=== PATIENT | male | born 1935 | race Caucasian/White ===

== ENCOUNTER 2021-01-26 17:33 | Observation (INO) | payer MEDICARE, SELFPAY ==
--- NOTE | 2021-01-26 17:27 | ECG_ITS ---
APPROVED REPORT Exam: Resting ECG HR:72 bpm ECG Measurements Heart Rate 72 AXES NV 146 P 55 QRSd 80 QRS 14 QT 402 T 66 QTc 440 Conclusion Normal sinus rhythm Normal ECG Electronically signed by : Flaco Duff, 01/27/2021 07:11:24
[2021-01-26 17:33] VITALS: BP 155/88; PULSE 84; RESP 20; TEMP 36.9; O2SAT 99; BMI 25.7
--- NOTE | 2021-01-26 17:49 | XR_ITS ---
PROCEDURE: XR CHEST PORTABLE CLINICAL HISTORY: soa Shortness of air, history of smoking COMPARISON: No exams were available for comparison FINDINGS: The cardiomediastinal silhouette and pulmonary vascularity are within normal limits. Chronic interstitial changes are present. Hyper lucency is present in the right upper lobe possibly due to bullous changes. No lobar consolidation or collapse. No acute bony abnormalities. IMPRESSION: COPD with possible bullous change right upper lobe Dictated by: Josh Fraire MD 01/27/2021 07:43 Josh Fraire MD in [place] 01/27/2021 07:43
--- NOTE | 2021-01-26 17:49 | CT_ITS ---
PROCEDURE: CT HEAD/BRAIN WO CON CLINICAL INDICATION: altered mental status Altered mental status, altered level of consciousness, confusion, disorientation COMPARISON: No exams were available for comparison TECHNIQUE: Axial images obtained. All CT scans at the facility use one or more dose reduction, viz: automated exposure control, ma/kV adjustment per patient size (including targeted exams where dose is matched to indication, i.e. head), or iterative reconstruction technique. FINDINGS: No midline shift, mass effect, intracranial hemorrhage, hydrocephalus, or extra-axial fluid collection is evident. The calvarium has an unremarkable appearance. The There is generalized atrophy with hypoattenuation of the periventricular white matter consistent with microangiopathic changes.. Encephalomalacia changes are present in the left frontal lobe. 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 There are bilateral mastoid effusions. There is mild mucosal thickening of the ethmoid sinuses. There is a defect present within the left frontal bone and could be postsurgical or true posttraumatic. IMPRESSION: No acute finding. Ischemic gliotic changes. Encephalomalacia change in the left frontal lobe adjacent to a small defect within the calvarium Dictated by: Josh Fraire MD 01/27/2021 09:05 Josh Fraire MD in [facility] 01/27/2021 09:05
[2021-01-26 17:54] LABS: Basophils # 0.1 K/mm3 (0-0.2); Basophils % 0.8 % (0.1-2.0); Eosinophils # 0.6 K/mm3 (0.0-0.4); Eosinophils % 6.8 % (0.1-12.0); Hematocrit 44.7 % (42.0-52.0); Hemoglobin 14.2 g/dL (14.1-18.0); Lymphocytes # 1.1 K/mm3 (0.7-4.5); Lymphocytes % 12.5 % (10-50); Mean Corpuscular HGB Conc 31.8 g/dL (31.8-35.4); Mean Corpuscular Volume 88.1 fl (80-94); Mean Platelet Volume 8.2 fl (7.4-10.4); Monocytes # 0.7 K/mm3 (0.1-1.0); Monocytes % 7.7 % (1.7-9.3); Neutrophils # 6.5 K/mm3 (1.8-7.8); Neutrophils % 72.1 % (37.0-80.0); Platelet Count 239 K/mm3 (142-424); Red Blood Count 5.08 M/mm3 (4.60-6.20); Red Cell Distribution Width 14.5 % (11.5-17.5)
[2021-01-26 18:06] VITALS: BMI 36.5
[2021-01-26 18:13] LABS: Anion Gap 12.4 mEq/L (5-15); Blood Urea Nitrogen 13 mg/dl (9-20); Calcium 10.7 mg/dl (8.4-10.2); Carbon Dioxide 31 mmol/L (22.0-30.0); Chloride 99 mmol/L (98-107); Creatinine Clearance Estimated 85 mL/min (50-200); Estimated Glomerular Filt Rate 80 ml/min (>60); GFR (African American) 97 ML/MIN (>60); Glucose 123 mg/dl (74-100); Potassium 4.4 mmoL/L (3.5-5.1); Sodium 138 mmol/L (136-145)
--- NOTE | 2021-01-26 18:16 | PC.NURSE ---
Respiratory aware of VBG
--- NOTE | 2021-01-26 18:16 | PC.NURSE ---
Pt to radiology
--- NOTE | 2021-01-26 18:17 | HMH.EDGENADL ---
ED Disposition Clinical Impression: Dementia, Impaired activities of daily living Disposition: Admitted as Observation Condition on Discharge: Good Referrals: PCP,No [Primary Care Provider] - - Critical Care Critical Care Time: No Attestation: On 01/26/21, the high probability of a clinically significant, sudden or life threatening deterioration of the following system(s) required my full and direct attention, intervention and personal management. The time I documented below is in addition to time spent performing reported procedures but includes the following listed in this critical care notation. Medical Decision Making - Medical Records Medical records reviewed: Yes: I reviewed the patient's medical records. - Elias Inquiry Pt receiving controlled substance: No Vital Signs: 01/26/21 17:33 01/26/21 19:01 Temperature 98.4 F Temperature Source Oral Pulse Rate 76 Pulse Rate [Left Radial] 84 Respiratory Rate 20 17 Blood Pressure 181/107 H Blood Pressure [Right Arm] 155/88 H Blood Pressure Mean [Right Arm] 110 Blood Pressure Source [Right Arm] Automatic Cuff Blood Pressure Position [Right Arm] Sitting 02 Sat by Pulse Oximetry 99 96 Oxygen Delivery Method Room Air - Lab Data Lab Results 01/26/21 17:45: WBC 9.0, RBC 5.08, Hgb 14.2, Hct 44.7, MCV 88.1, MCH 28.0, MCHC 31.8, RDW 14.5, Plt Count 239, MPV 8.2, Neut % (Auto) 72.1, Lymph % (Auto) 12.5, [place] % (Auto) 7.7, Eos % (Auto) 6.8, Baso % (Auto) 0.8, Neut # (Auto) 6.5, Lymph # (Auto) 1.1, [place] # (Auto) 0.7, Eos # (Auto) 0.6 H, Baso # (Auto) 0.1 01/26/21 17:45: Sodium 138, Potassium 4.4, Chloride 99, Carbon Dioxide 31 H, Anion Gap 12.4, BUN 13, Creatinine 0.90, Estimated Creat Clear 85, Estimated GFR 80, Est GFR ( Amer) 97, Glucose 123 H, Calcium 10.7 H, Magnesium 2.0 01/26/21 17:49: VBG pH 7.35, VBG pCO2 53.8 H, VBG pO2 37.6, VBG HCO3 29.2, VBG Total CO2 30.9 H, VBG O2 Saturation 69.2, VBG Base Excess 3.7 H 01/26/21 19:00: Urine Color Yellow, Urine Appearance Clear, Urine pH 5.5, Ur Specific [place] >= 1.030, Urine Protein Negative, Urine Glucose (UA) Negative, Urine Ketones Negative, Urine Blood Negative, Urine Nitrate Negative, Urine Bilirubin Negative, Urine Urobilinogen 0.2, Ur Leukocyte Esterase Negative, Urine WBC 3-5, Ur Squamous Epith Cells 5-10, Amorphous Sediment Trace, Urine Mucus 4+ Result diagrams: 01/26/21 17:45 01/26/21 17:45 Orders (Tests/Meds): ORDERS Category Date Time Status CT head/brain wo con Stat Cat Scan 01/26/21 17:49 Taken XR chest portable Stat Exams 01/26/21 17:49 Taken Full Resp Panel w/COVID ([facility]) Routine Lab 01/26/21 19:29 Received Medical Decision Narrative: 85-year-old male presents with dementia and worsening function, normal neurological exam. Appears to be worsening deconditioning at home. CT head and labs obtained urinalysis and chest x-ray obtained as well. Full evaluation for medical work-up initiated. CT head urinalysis and labs otherwise unremarkable. Based on the story the patient is having worsening deconditioning, difficulty with activities of daily living and the family is unable to take care of him at this time at the house. I discussed this with Dr. Quinn and plan will be to admit and have social work and Dr. Quinn discussed in the morning with different options for the patient General Adult HPI - General Chief complaint: Weakness Stated complaint: weakness Time Seen by Provider: 01/26/21 17:40 Mode of Arrival: EMS Limitations: Altered Mental Status Description of Symptoms (Recalled from ER Triage Doc. by RN): son states that pt has become more weaker the last few days to where they cant get him up to the bathroom or lift him. - History of Present Illness HPI narrative: With history of dementia presents with worsening deconditioning at home. He lives with his who is frail and having difficulty taking care of him. He has had frequent falls recently. His son says
[2021-01-26 18:29] LABS: VBG Base Excess 3.7 mmol/L (-2.4-2.3); VBG HCO3 29.2 mmol/L (23-30); VBG Oxygen Saturation 69.2 % (50-70); VBG PCO2 53.8 mmol/L (35-51); VBG PH 7.35 mmol/L (7.31-7.41); VBG PO2 37.6 mmol/L (28-40); VBG Total CO2 30.9 mmol/L (23-27)
[2021-01-26 19:01] VITALS: BP 181/107; PULSE 76; RESP 17; O2SAT 96
[2021-01-26 19:07] LABS: Microscopic, Urine URINE MICROSCOPIC (MICROSCOPIC)
[2021-01-26 19:08] LABS: Appearance,Urine CLEAR (Clear); Bilirubin,Urine Negative (Negative); Blood, Urine Negative (Negative); Color,Urine YELLOW (Yellow); Glucose,Urine (UA) Negative (Negative); Ketones,Urine Negative (Negative); Leukocyte Esterase,Urine Negative (Negative); Nitrate,Urine Negative (Negative); PH,Urine 5.5 (5.0-8.5); Protein,Urine Negative (Negative); Specific Gravity, Urine >= 1.030 (1.005-1.030); Urobilinogen,Urine 0.2 EU/dl (0.2)
[2021-01-26 19:19] LABS: Amorphous Sediment,Urine Trace /lpf; Mucus,Urine 4+ /lpf
[2021-01-26 19:33] LABS: Adenovirus,PCR Not Detected (NotDetected); Bordetella Pertussis Not Detected (NotDetected); Chlamydophila Pneumoniae, PCR Not Detected (NotDetected); Coronavirus 19, PCR Not Detected (NotDetected); Coronavirus 229E Not Detected (NotDetected); Coronavirus NL63 Not Detected (NotDetected); Coronavirus OC43 Not Detected (NotDetected); Coronovirus HKU1,PCR Not Detected (NotDetected); Human Metapneumovirus Not Detected (NotDetected); Influenza A, PCR Not Detected (NotDetected); Influenza AH1, 2009 Not Detected (NotDetected); Influenza AH1, PCR Not Detected (NotDetected); Influenza AH3,PCR Not Detected (NotDetected); Influenza B, PCR Not Detected (NotDetected); Mycoplasma Pneumoniae, PCR Not Detected (NotDetected); Parainfluenza 1, PCR Not Detected (NotDetected); Parainfluenza 2, PCR Not Detected (NotDetected); Parainfluenza 3, PCR Not Detected (NotDetected); Parainfluenza 4, PCR Not Detected (NotDetected); Respiratory Syncytial Virus Not Detected (NotDetected); Rhinovirus/Enterovirus Not Detected (NotDetected)
[2021-01-26 22:28] VITALS: BP 186/100; PULSE 70; RESP 18; TEMP 36.6; O2SAT 96; BMI 28.9
--- NOTE | 2021-01-26 22:28 | PC.NURSE ---
patient up to floor via stretcher.
[2021-01-26 22:50] VITALS: BP 154/76; PULSE 76; RESP 18; TEMP 36.9; O2SAT 96
[2021-01-27] VITALS: BP 143/90; O2SAT 93
[2021-01-27 04:00] VITALS: BP 154/91; PULSE 76; RESP 16; TEMP 36.9; O2SAT 96
--- NOTE | 2021-01-27 04:59 | PC.NURSE ---
pt is able to answer orientation questions, but cannot tell me medications or much about his medical history, has been pleasant and talkative, has had intermittent confusion, arrived to floor with 2L NC, but was taken off and has remained on room air with sats 93-96% since 2299, has no complaints of SOA, chest pain, N/V/D, bed alarm on for safety
[2021-01-27 05:00] VITALS: BMI 28.9
[2021-01-27 08:00] VITALS: BP 155/93; PULSE 87; RESP 18; TEMP 36.7; O2SAT 95
--- NOTE | 2021-01-27 08:49 | HMH.HP ---
*Admission Date: 01/26/21 *Chief complaint: Frequent falls, weakness *History of present illness: 85-year-old white male with history of type 2 diabetes, senile dementia and osteoarthritis who has had progressive functional decline which is accelerated over the past couple of weeks. He and his live in [facility], but his who is afflicted with her own medical problems has become unable to care for him without safety issues and frequent falls over the past couple weeks and brought him up to their son's house who lives in [place], [place]. He and his have also been impressed with his degree of functional decline and inability to transition from bed to chair, etc. over the past weeks, and called his physician, Dr. Beckman, who cares for him in [place], who recommended coming to the local emergency department to see if there were reversible/metabolic causes of his worsening encephalopathy/fall/weakness. They presented to the emergency department, work-up revealed normal BMP and CBC, normal urinalysis, negative coronavirus testing and negative CT scan of head for acute changes. He was admitted to observation for further diagnostic testing, therapy evaluation and placement evaluation. [facility] History I have reviewed the patient's past medical history: Yes Medical History: Reports:: Diabetes Mellitus Type 2, Hypertension Denies:: Cancer, Diabetes Mellitus Type 1, MRSA *Have you ever received a pneumonia vaccine?: No *Have you received a flu vaccine this season?: No Other Surgeries: Yes: Appendectomy, Sinus Surgery Amputation: No Fractures: Yes (right arm) - *Social History Last grade of school completed: 9th or 10th Smoking Status: Former smoker Alcohol Intake: never *Occupational Status:: retired Housing: house Household Members: spouse, children *Travel in the last 8 weeks: None Family Hx:: Unable to obtain Review of Systems - Review of Systems Review of systems:: unable to obtain Patient is pleasant, has significant dementia. Denies cardiac, pulmonary or GI symptoms. - *Neurologic Denies abnormal walking, Denies unsteadiness, Denies dizziness, Denies headache(s) Meds Home Medications Medication Instructions Recorded Confirmed Type Aspirin 81 mg PO DAILY 01/26/21 01/26/21 History Cetirizine HCl [Zyrtec 10mg ODT*] 10 mg PO DAILY 01/26/21 01/26/21 History Donepezil HCl [Donepezil ODT 10mg] 10 mg PO DAILY 01/26/21 01/26/21 History Losartan Potassium [Cozaar 25mg 25 mg PO DAILY 01/26/21 01/26/21 History Tablets] Metformin HCl [Fortamet] 500 mg PO BID 01/26/21 01/26/21 History Tramadol HCl [Tramadol 50mg 50 mg PO DAILY 01/26/21 01/26/21 History Tab] Allergies Allergy/AdvReac Type Severity Reaction Status Date / Time No Known Allergies Allergy Verified 01/26/21 18:16 Exam Vital signs and Labs for Last 24 Hours: Temp Pulse Resp BP Pulse Ox 98.0 F 87 18 155/93 H 95 01/27/21 08:00 01/27/21 08:00 01/27/21 08:00 01/27/21 08:00 01/27/21 08:00 Laboratory Results - last 24 hr 01/26/21 17:45: WBC 9.0, RBC 5.08, Hgb 14.2, Hct 44.7, MCV 88.1, MCH 28.0, MCHC 31.8, RDW 14.5, Plt Count 239, MPV 8.2, Neut % (Auto) 72.1, Lymph % (Auto) 12.5, [place] % (Auto) 7.7, Eos % (Auto) 6.8, Baso % (Auto) 0.8, Neut # (Auto) 6.5, Lymph # (Auto) 1.1, [place] # (Auto) 0.7, Eos # (Auto) 0.6 H, Baso # (Auto) 0.1 01/26/21 17:45: Sodium 138, Potassium 4.4, Chloride 99, Carbon Dioxide 31 H, Anion Gap 12.4, BUN 13, Creatinine 0.90, Estimated Creat Clear 85, Estimated GFR 80, Est GFR ( Amer) 97, Glucose 123 H, Calcium 10.7 H, Magnesium 2.0 01/26/21 17:49: VBG pH 7.35, VBG pCO2 53.8 H, VBG pO2 37.6, VBG HCO3 29.2, VBG Total CO2 30.9 H, VBG O2 Saturation 69.2, VBG Base Excess 3.7 H 01/26/21 19:00: Urine Color Yellow, Urine Appearance Clear, Urine pH 5.5, Ur Specific [place] >= 1.030, Urine Protein Negative, Urine Glucose (UA) Negative, Urine Ketones Negative, Urine Blood Negative, Urine Nitrate Negative, Ur
--- NOTE | 2021-01-27 09:43 | HMH.PHAVTE ---
[facility] Pharmacy VTE Monitoring - Patient Demographics Admission date: 01/26/21 Report Date: 01/27/21 Time: 09:43 Allergies/Adverse Reactions: Patient Allergies No Known Allergies Allergy (Verified 01/26/21 18:16) Height: 1.73 m Weight: 86.5 kg Patient Problems: Current Active Problems Dementia (Acute) Impaired activities of daily living (Acute) Frequent falls (Acute) Diabetes mellitus type 2, noninsulin dependent (Acute) - VTE Risk Labs: VTE Related Lab Results Hgb 14.2 g/dL (14.1-18.0) 01/26/21 17:45 Hct 44.7 % (42.0-52.0) 01/26/21 17:45 Plt Count 239 K/mm3 (142-424) 01/26/21 17:45 BUN 13 mg/dl (9-20) 01/26/21 17:45 Creatinine 0.90 mg/dl (0.66-1.25) 01/26/21 17:45 Estimated Creat Clear 85 mL/min (50-200) 01/26/21 17:45 VTE Score: 6 VTE Risk Level: Moderate Risk - Prophylaxis VTE Prophylaxis Ordered?: Yes Types of VTE Prophylaxis: TEDS Knee High Location of Applied Device: Bilateral Lower Extremeties
[2021-01-27 10:12] LABS: Thyroid Stimulating Hormone 3.86 uIU/mL (0.465-4.68)
[2021-01-27 10:32] LABS: Vitamin B12 > 1000 pg/mL (239-931)
--- NOTE | 2021-01-27 11:49 | HMH.PTEV ---
Physical Therapy Evaluation Rehab PT IP Evaluation Start: 01/27/21 08:42 Freq: ONCE Status: Active Protocol: Document 01/27/21 11:42 JULI (Rec: 01/27/21 11:48 JULI [id number]) Subjective/History History History PT ADMITTED TO [facility] 82 YO MALE (PT AND PT'S SON BOTH CONFIRMED 1937 YEAR) W/ DEMENTIA AND FAILURE TO THRIVE Subjective Subjective PT REPORTS 'VERY LITTLE' R SH PAIN THIS AM Rehab PT IP Eval Objective Appearance Patient Behavior Appropriate,Cooperative Patient Orientation Person,Place,Name,Birthday, Situation Difficulty following instructions mild Speech Pattern Clear,Rambling,Spontaneous Speech Ambulation Patient Able to Ambulate Yes Ambulation Observation IP General Gait Pattern Observation Narrow Based Gait Ambulation Distance (feet) 4 Ambulation Assistive Device Rolling Walker Ambulation Ability Moderate x 2 (50% assist) Balance Ability to Arise Able, uses arms to help Sitting Balance Leans or slides in chair Standing Balance Unsteady Dynamic Sitting Balance Ability Poor Dynamic Standing Balance Ability Poor Transfers Bed Transfer Ability Moderate x 1 (50% assist) Sit to Stand Bed Transfer Ability Moderate x 2 (50% assist) Pain Right Shoulder Pain Intensity 1 ROM All Extremities PT ROM Status WFL MMT All Extremities PT MMT WFL Rehab PT IP prob,goals,plan Problems Date of Evaluation: 01/27/21 PT IP Problems Bed Mobility,Transfers,Gait, Balance,Self care,Safety Rehab Potential Rehab Potential Good Equipment Needs Assistive Devices Rolling / Wheeled Walker Plan PT Intervention Plan Bed Mobility,Transfers,Gait, Balance,Self care,Safety PT Plan Frequency BID Duration LOS Discharge Goals Bed Transfer Ability Minimal x 1 (25% assist) Sit to Stand Chair Transfer Ability Moderate x 1 (50% assist) Ambulation Assistive Device Rolling Walker Ambulation Distance (feet) 10 Discharge Plan PT Discharge Plan PT TO D/C TO REHAB OR LTC FACILITY TO CONTINUE TO REGAIN STRENGTH FOR ADL'S G -code Required No Eval Complexity Eval Charge Codes 00973 - Low Complexity PHYSICIAN CERTIFICATION: I certify the specified therapy services for Ramiro Prince
[2021-01-27 16:00] VITALS: BP 154/95; PULSE 83; RESP 18; TEMP 37; O2SAT 94
--- NOTE | 2021-01-27 17:59 | PC.NURSE ---
no acute changes noted. pt received a bath this shift. pt had a bm this shift. he has been turned q2hr. vss. safety in place. mary alice cont. to monitor.
[2021-01-27 19:57] VITALS: BP 157/86; PULSE 83; RESP 19; TEMP 36.9; O2SAT 93
[2021-01-28 03:49] VITALS: BP 134/90; PULSE 76; RESP 17; TEMP 36.8; O2SAT 91
--- NOTE | 2021-01-28 04:02 | PC.NURSE ---
no acute changes this shift, only oriented to person and birthday, has removed 2 IVs this shift, remains on room air, no complaints this shift, bed safety on
[2021-01-28 04:58] VITALS: BMI 29.1
[2021-01-28 08:00] VITALS: BP 190/98; PULSE 84; RESP 18; TEMP 36.9; O2SAT 95
--- NOTE | 2021-01-28 08:28 | HMH.ACPN2 ---
Internal Medicine - PN: Subj *Date: 01/28/21 *Time: 08:28 Interval history: Patient has done well overnight. This morning is not very talkative. Nursing staff reports he is not been talkative this morning but did eat some of his breakfast. He will shake his head yes or no in response to questions but is certainly not as verbal as yesterday. Exam Vital signs and Labs for Last 24 Hours: Temp Pulse Resp BP Pulse Ox 98.4 F 84 18 190/98 H 95 01/28/21 08:00 01/28/21 08:00 01/28/21 08:00 01/28/21 08:00 01/28/21 08:00 Laboratory Results - last 24 hr 01/26/21 17:45: Vitamin B12 > 1000 H, TSH 3.86 I & O for Last 24 hours: Intake & Output 01/25/21 01/26/21 01/27/21 01/28/21 11:59 11:59 11:59 11:59 Intake Total 962 / 962 480 / 480 Output Total 420 / 420 Balance 962 / 962 60 / 60 Weight 190 lb 11.198 oz 192 lb 3 oz Narrative: No cranial nerve asymmetry. Spontaneously moving all extremities. ENT exam otherwise clear. Heart rate regular. Lungs are clear in the anterior gentile, abdomen soft. No edema or clubbing. Assessment and Plan (1) Frequent falls Status: Acute Category: Medical Code(s): R29.6 - Repeated falls (2) Diabetes mellitus type 2, noninsulin dependent Status: Acute Category: Medical Code(s): E11.9 - Type 2 diabetes mellitus without complications (3) Dementia Status: Acute Category: Medical Code(s): F03.90 - Unspecified dementia without behavioral disturbance (4) Impaired activities of daily living Status: Acute Category: Medical Code(s): Z78.9 - Other specified health status - Assessment and plan all Dx Assessment and Plan for all problems:: Restart home medications given his elevated blood pressure yesterday. I believe his nonverbal status is more his dementia and possible anxiety being in the hospital away from his . Continue to observe. Care management involved in finding long-term care facility.
[2021-01-28 11:38] VITALS: BMI 29.1
[2021-01-28 15:43] VITALS: BP 150/88; PULSE 83; RESP 18; TEMP 36.5; O2SAT 90
--- NOTE | 2021-01-28 18:46 | PC.NURSE ---
Pt has been aert to sef only this shift. D/t pt being a hard stick and continuing to pull out PIV, per MD Duff- no PIV needed at this time. Pt has had a poor appetite this shift. Pt has been incontinent of bowel and urine this shift. No other acute changes or complaints at this time.
[2021-01-28 19:45] VITALS: O2SAT 91
[2021-01-28 20:00] VITALS: BP 126/85; PULSE 90; RESP 16; TEMP 37; O2SAT 91
[2021-01-29 03:33] VITALS: BP 148/85; PULSE 72; RESP 18; TEMP 36.8; O2SAT 93
[2021-01-29 05:05] VITALS: BMI 28.5
--- NOTE | 2021-01-29 05:28 | PC.NURSE ---
no acute changes since prior assessment, pt has rested well t/o shift, is oriented to self, lungs CTA, remains on room air, bed safety on
[2021-01-29 08:00] VITALS: BP 147/93; PULSE 65; RESP 16; TEMP 36.8; O2SAT 94
--- NOTE | 2021-01-29 08:38 | P.PN_ITS ---
Internal Medicine - PN: Subj *Date: 01/29/21 *Time: 08:38 Interval history: Did well overnight, eating well, talkative this morning. Exam Vital signs and Labs for Last 24 Hours: Temp Pulse Resp BP Pulse Ox 98.3 F 65 16 147/93 H 94 L 01/29/21 08:00 01/29/21 08:00 01/29/21 08:00 01/29/21 08:00 01/29/21 08:00 I & O for Last 24 hours: Intake & Output 01/26/21 01/27/21 01/28/21 01/29/21 11:59 11:59 11:59 11:59 Intake Total 962 / 962 480 / 480 480 / 480 Output Total 420 / 420 Balance 962 / 962 60 / 60 480 / 480 Weight 190 lb 11.198 oz 192 lb 3.007 oz 188 lb 9 oz Narrative: Alert, demented. Pleasant. Lungs clear, heart rate regular, abdomen soft, extremities weak but no focal deficits. See PT notes. ENT exam clear except for old eye findings Assessment and Plan (1) Frequent falls Status: Acute Category: Medical Code(s): R29.6 - Repeated falls (2) Diabetes mellitus type 2, noninsulin dependent Status: Acute Category: Medical Code(s): E11.9 - Type 2 diabetes mellitus without complications (3) Dementia Status: Acute Category: Medical Code(s): F03.90 - Unspecified dementia without behavioral disturbance (4) Impaired activities of daily living Status: Acute Category: Medical Code(s): Z78.9 - Other specified health status - Assessment and plan all Dx Assessment and Plan for all problems:: No changes in plan. Continue physical therapy. We will begin process of long- term care evaluation.
--- NOTE | 2021-01-29 09:52 | HMH.OTEV ---
OT Inpatient Evaluation Rehab OT IP Evaluation Start: 01/27/21 08:42 Freq: ONCE Status: Complete Protocol: Document 01/29/21 09:43 SURAJALEC (Rec: 01/29/21 09:52 SURAJALEC [id number]) Rehab OT IP Assessment Subjective History 85-year-old white male with history of type 2 diabetes, senile dementia and osteoarthritis who has had progressive functional decline which is accelerated over the past couple of weeks. He and his live in [facility], but his who is afflicted with her own medical problems has become unable to care for him without safety issues and frequent falls over the past couple weeks and brought him up to their son's house who lives in [place], [place]. He and his have also been impressed with his degree of functional decline and inability to transition from bed to chair, etc. over the past weeks, and called his physician, Dr. Beckman, who cares for him in [place], who recommended coming to the local emergency department to see if there were reversible/metabolic causes of his worsening encephalopathy/fall/weakness. They presented to the emergency department, work-up revealed normal BMP and CBC, normal urinalysis, negative coronavirus testing and negative CT scan of head for acute changes. He was admitted to observation for further diagnostic testing, therapy evaluation and placement evaluation. Subjective I can't stand very well. Instructed Patient on proper hand and foot placement to complete supine->sit @ EOB requiring Max A x2. Instructed
--- NOTE | 2021-01-29 10:00 | SW/DCPLANNER ---
Addendum entered by Rosa De Santiago 02/01/21 10:48: PATIENT HAS BEEN ACCEPTED AND CAN DISCHARGE TO [facility] ONCE COVID RESULTS ARE DONE... WILL NOTIFY FAMILY.. Addendum entered by Sulema Ribeiro 01/31/21 09:30: I have spoke with Becky this morning: currently waiting to hear back regarding authorization from patients insurance. Addendum entered by Rosa De Santiago 01/30/21 10:05: INSURANCE COMPANY HAS REQUESTED UPDATES...THIS WAS SENT...WAITING TO HEAR BACK. Addendum entered by Rosa De Santiago 01/30/21 06:43: RECEIVED A PHONE CALL LATE YESTERDAY AFTERNOON FROM [facility] AND THEY HAVE STARTED THE PRECERT FOR THIS PATIENT TO GO THERE.. CAYDEN, TRUST MANAGER STATED IT USUALLY TAKES TWO TO THREE DAYS FOR ANTHEM TO GET BACK WITH THEM.. WAITING TO HEAR BACK...ONCE ACCEPTED HE WILL DISCHARGE THERE... Addendum entered by Rosa De Santiago 01/29/21 13:43: SPOKE WITH , SON AND DAUGHTER IN LAW REGARDING DISCHARGE PLANNING ON THIS PATIENT: PATIENT WAS BROUGHT TO THE [facility] HOME AROUND FIVE WEEKS AGO WHEN COULD NOT CARE FOR HIM...HE WAS BROUGHT TO THE HOSPITAL FOR PLACEMENT AND I HAD A LONG CONVERSATION WITH THEM TODAY AND THEY HAVE REQUESTED FOR HIM TO BE PLACED BACK WHERE THEY LIVE.. I HAVE SENT IT TO MULTIPLE PLACES: [facility] , [facility] , [facility] ([phone]... WILL DO FOLLOW CALLS AND CHECK TO SEE IF AUTH IS GIVEN... Original Note: RECEIVED REFERRAL FOR THIS PATIENT WHO WAS BROUGHT TO [facility] FROM OUT OF TOWN WITH SENILE DEMENTIA, OSTEOARTHRITIS AND OVERALL FUNCTIONAL DECLINE.. HE WAS RESIDING IN [facility] WITH HIS AND HE HAS BEEN NOT ABLE TO MANAGE BY HIS AND SON WANTED HIM PLACED.. PATIENT HAS AN ANTHEM/MCR HE WILL HAVE TO GO SOMEWHERE THAT HAS A CONTRACT WITH HIS INSURANCE.. WILL SPEAK WITH THE FAMILY TODAY AND ATTEMPT TO GET HIM PLACED...
[2021-01-29 15:54] VITALS: BP 157/90; PULSE 77; RESP 16; TEMP 36.3; O2SAT 94
--- NOTE | 2021-01-29 16:03 | DIET.NUTRFU ---
Addendum entered by Elsie Booker 01/31/21 15:24: PO intakes 75% + daily protein shake. BG 123, 133. A1C was taken and is 7.9. Weight stable, bowels normal. Will continue regular diet with sugar free beverages/desserts at this time. Continuing to monitor. Original Note: PO intakes 50%, weight stable, BG not being taken-123 at admit. Spoke with during lunch, pt was talkative and eating. stated he requires full assistance feeding with cueing/encouragement. He is a well controlled diabetic per , on Metformin. She does report recently decreased PO intake. He is on a regular diet with sugar free beverages/desserts, moderate soft modifications, and daily protein shake. Continuing to monitor and alter diet as needed. Diet education/counseling provided for DM and dementia.
--- NOTE | 2021-01-29 18:31 | PC.NURSE ---
Pt is resting in bed at this time. RR even and unlabored. NAD. Lungs cta. Alert to person and place. Pt does have visual and auditory deficits.BS x 4 and abd soft and non tender. Bed alarm in place r/t safety. Requires assistance x 2. CB in reach. Have turned and repositioned. Has been up to chair this shift. S1,S2 heart sounds. VSS.
[2021-01-29 20:00] VITALS: BP 169/83; PULSE 77; RESP 17; TEMP 36.6; O2SAT 93
[2021-01-30] VITALS: BP 187/87; PULSE 89; RESP 19; TEMP 36.7; O2SAT 94
[2021-01-30 04:00] VITALS: BP 150/93; PULSE 85; RESP 18; TEMP 36.8; O2SAT 93
[2021-01-30 05:21] VITALS: BMI 28.5
--- NOTE | 2021-01-30 05:27 | PC.NURSE ---
no acute changes, pt remains on room air, lungs CTA, is oriented to person, bed safety remains on
--- NOTE | 2021-01-30 06:40 | HMH.ACPN2 ---
Internal Medicine - PN: Subj *Date: 01/30/21 *Time: 08:48 Interval history: No issues overnight. Hemodynamically stable. Pleasant interview this morning. Afebrile. Tolerating p.o. intake. Exam Vital signs and Labs for Last 24 Hours: Temp Pulse Resp BP Pulse Ox 98.3 F 85 18 150/93 H 93 L 01/30/21 04:00 01/30/21 04:00 01/30/21 04:00 01/30/21 04:00 01/30/21 04:00 I & O for Last 24 hours: Intake & Output 01/27/21 01/28/21 01/29/21 01/30/21 23:59 23:59 23:59 23:59 Intake Total 1442 / 1442 480 / 480 720 / 720 Output Total 420 / 420 Balance 1022 / 1022 480 / 480 720 / 720 Weight 86.5 kg 87.175 kg 85.531 kg 85.531 kg Narrative: Alert, oriented to person only, demented. Pleasant. Lungs clear, heart rate regular, abdomen soft, extremities weak but no focal deficits. ENT exam clear except for old eye findings Assessment and Plan (1) Frequent falls Status: Acute Category: Medical Code(s): R29.6 - Repeated falls (2) Diabetes mellitus type 2, noninsulin dependent Status: Acute Category: Medical Code(s): E11.9 - Type 2 diabetes mellitus without complications (3) Dementia Status: Acute Category: Medical Code(s): F03.90 - Unspecified dementia without behavioral disturbance (4) Impaired activities of daily living Status: Acute Category: Medical Code(s): Z78.9 - Other specified health status (5) Essential hypertension Status: Chronic Category: Medical Code(s): I10 - Essential (primary) hypertension Increased Irbesartan (6) Prediabetes Status: Chronic Category: Medical Code(s): R73.03 - Prediabetes continue Metformin - Assessment and plan all Dx Assessment and Plan for all problems:: No changes in plan. Continue physical therapy. Continue to await placement for long-term care.
[2021-01-30 07:16] LABS: Anion Gap 9.4 mEq/L (5-15); Blood Urea Nitrogen 14 mg/dl (9-20); Calcium 10.5 mg/dl (8.4-10.2); Carbon Dioxide 31 mmol/L (22.0-30.0); Chloride 101 mmol/L (98-107); Creatinine Clearance Estimated 67 mL/min (50-200); Estimated Glomerular Filt Rate 80 ml/min (>60); GFR (African American) 97 ML/MIN (>60); Glucose 133 mg/dl (74-100); Potassium 4.4 mmoL/L (3.5-5.1); Sodium 137 mmol/L (136-145)
[2021-01-30 07:43] VITALS: BP 145/90; PULSE 85; RESP 18; TEMP 36.9; O2SAT 95
[2021-01-30 08:00] VITALS: O2SAT 95
[2021-01-30 15:49] VITALS: BP 140/88; PULSE 85; RESP 20; TEMP 36.7; O2SAT 96
--- NOTE | 2021-01-30 16:48 | PC.NURSE ---
Pt has been alert to self this shift. Pt got up to chair w/ PT for a couple hours this shift requiring x2 assist. Pt has been incontinent of urine and bowel this shift. Lung sounds CTA. No other acute changes or complaints at this time.
[2021-01-30 20:00] VITALS: BP 146/51; PULSE 78; RESP 18; TEMP 37.3; O2SAT 93
[2021-01-30 20:24] LABS: Hemoglobin A1C 7.9 % (4.0-6.0)
[2021-01-31 04:00] VITALS: BP 148/62; PULSE 78; RESP 18; TEMP 36.7; O2SAT 94
[2021-01-31 05:19] VITALS: BMI 28.4
--- NOTE | 2021-01-31 06:21 | PC.NURSE ---
no acute changes since prior assessment, pt alert to name and birthday, remains on room air, lungs CTA, bed safety remains on
[2021-01-31 08:00] VITALS: BP 174/89; PULSE 84; RESP 20; TEMP 37.1; O2SAT 97
--- NOTE | 2021-01-31 08:28 | HMH.ACPN2 ---
Internal Medicine - PN: Subj *Date: 01/31/21 *Time: 08:28 Interval history: Did well overnight, no concerns from nursing staff, patient is pleasant and quiet. No complaints. Exam Vital signs and Labs for Last 24 Hours: Temp Pulse Resp BP Pulse Ox 98.7 F 84 20 174/89 H 97 01/31/21 08:00 01/31/21 08:00 01/31/21 08:00 01/31/21 08:00 01/31/21 08:00 Laboratory Results - last 24 hr 01/30/21 08:30: Hemoglobin A1c 7.9 H I & O for Last 24 hours: Intake & Output 01/28/21 01/29/21 01/30/21 01/31/21 11:59 11:59 11:59 11:59 Intake Total 480 / 480 600 / 600 840 / 840 480 / 480 Output Total 420 / 420 Balance 60 / 60 600 / 600 840 / 840 480 / 480 Weight 192 lb 3.007 oz 188 lb 9 oz 188 lb 9.017 oz 187 lb 9 oz - Constitutional no acute distress - *Routine HEENT Exam Head: Present: normocephalic Eye: Present: EOMI, PERRL ENT: Present: mucous membranes moist - *Routine Neck Exam Present: supple. Absent: lymphadenopathy - *Routine Respiratory Exam Present: CTA bilaterally - *Routine Cardiovascular Exam Present: RRR - *Routine Abdominal Exam Present: soft, normoactive bowel sounds. Absent: tenderness - *Routine Extremities Exam Absent: cyanosis, clubbing, edema - *Routine Skin Exam Present: warm. Absent: rash - *Routine Neurological Exam Present: alert, oriented X3 Assessment and Plan (1) Frequent falls Status: Acute Category: Medical Code(s): R29.6 - Repeated falls (2) Diabetes mellitus type 2, noninsulin dependent Status: Acute Category: Medical Code(s): E11.9 - Type 2 diabetes mellitus without complications (3) Dementia Status: Acute Category: Medical Code(s): F03.90 - Unspecified dementia without behavioral disturbance (4) Impaired activities of daily living Status: Acute Category: Medical Code(s): Z78.9 - Other specified health status (5) Essential hypertension Status: Chronic Category: Medical Code(s): I10 - Essential (primary) hypertension (6) Prediabetes Status: Chronic Category: Medical Code(s): R73.03 - Prediabetes - Assessment and plan all Dx Assessment and Plan for all problems:: Doing well with medication change from yesterday. No changes in plan, await placement for long-term care in skilled care nursing unit
[2021-01-31 16:00] VITALS: BP 130/82; PULSE 89; RESP 18; TEMP 36.9; O2SAT 98
[2021-01-31 20:00] VITALS: BP 159/96; PULSE 76; RESP 17; TEMP 36.9; O2SAT 93
--- NOTE | 2021-02-01 03:41 | PC.NURSE ---
NO acute changes overnight. Pt remains on room air, lungs CTA. Bowel soudns x4, abd soft and non tender. Oriented to self only. Bed alarm is on. VSS, call light in reach, no concerns at this time.
[2021-02-01 03:54] VITALS: BP 130/79; PULSE 94; RESP 16; TEMP 36.8; O2SAT 94
[2021-02-01 05:06] VITALS: BMI 28.5
[2021-02-01 07:31] VITALS: BP 143/87; PULSE 90; RESP 18; TEMP 36.7; O2SAT 94
--- NOTE | 2021-02-01 07:58 | HMH.ACPN2 ---
Internal Medicine - PN: Subj *Date: 02/01/21 *Time: 07:58 Interval history: Patient rested well, no major problems, patient has improved with physical therapy according to notes. Exam Vital signs and Labs for Last 24 Hours: Temp Pulse Resp BP Pulse Ox 98.1 F 90 18 143/87 H 94 L 02/01/21 07:31 02/01/21 07:31 02/01/21 07:31 02/01/21 07:31 02/01/21 07:31 I & O for Last 24 hours: Intake & Output 01/29/21 01/30/21 01/31/21 02/01/21 11:59 11:59 11:59 11:59 Intake Total 600 / 600 840 / 840 480 / 480 720 / 720 Balance 600 / 600 840 / 840 480 / 480 720 / 720 Weight 188 lb 9 oz 188 lb 9.017 oz 187 lb 9 oz 188 lb 1 oz Narrative: Heart rate regular, lungs clear, good expansion. No visible edema, other than his previously noted eye findings neurological exam gross Kip normal. Assessment and Plan (1) Frequent falls Status: Acute Category: Medical Code(s): R29.6 - Repeated falls (2) Diabetes mellitus type 2, noninsulin dependent Status: Acute Category: Medical Code(s): E11.9 - Type 2 diabetes mellitus without complications (3) Dementia Status: Acute Category: Medical Code(s): F03.90 - Unspecified dementia without behavioral disturbance (4) Impaired activities of daily living Status: Acute Category: Medical Code(s): Z78.9 - Other specified health status (5) Essential hypertension Status: Chronic Category: Medical Code(s): I10 - Essential (primary) hypertension (6) Prediabetes Status: Chronic Category: Medical Code(s): R73.03 - Prediabetes - Assessment and plan all Dx Assessment and Plan for all problems:: Patient is stable. Physical therapy notes reviewed, given his large size, frequent falls and evidence of need for skilled care with improvement even with short-term therapy patient would be extremely appropriate for skilled care facility with physical therapy/Occupational Therapy. I do not believe home health is a good option for patient given his visual disturbances and need for aggressive skilled care per PT notes.
[2021-02-01 08:00] VITALS: PULSE 90; RESP 18; O2SAT 94
[2021-02-01 11:21] LABS: Adenovirus,PCR Not Detected (NotDetected); Bordetella Pertussis Not Detected (NotDetected); Chlamydophila Pneumoniae, PCR Not Detected (NotDetected); Coronavirus 19, PCR Not Detected (NotDetected); Coronavirus 229E Not Detected (NotDetected); Coronavirus NL63 Not Detected (NotDetected); Coronavirus OC43 Not Detected (NotDetected); Coronovirus HKU1,PCR Not Detected (NotDetected); Human Metapneumovirus Not Detected (NotDetected); Influenza A, PCR Not Detected (NotDetected); Influenza AH1, 2009 Not Detected (NotDetected); Influenza AH1, PCR Not Detected (NotDetected); Influenza AH3,PCR Not Detected (NotDetected); Influenza B, PCR Not Detected (NotDetected); Mycoplasma Pneumoniae, PCR Not Detected (NotDetected); Parainfluenza 1, PCR Not Detected (NotDetected); Parainfluenza 2, PCR Not Detected (NotDetected); Parainfluenza 3, PCR Not Detected (NotDetected); Parainfluenza 4, PCR Not Detected (NotDetected); Respiratory Syncytial Virus Not Detected (NotDetected)
--- NOTE | 2021-02-01 12:53 | HMH.DCSUM ---
General - General Admission date:: 01/26/21 Discharge date: 02/01/21 HPI HPI: 85-year-old white male with history of type 2 diabetes, senile dementia and osteoarthritis who has had progressive functional decline which is accelerated over the past couple of weeks. He and his live in [facility] ([place], [place]), but his who is afflicted with her own medical problems has become unable to care for him without safety issues and frequent falls over the past couple weeks and brought him up to their son's house who lives in [place], [place]. He and his have also been impressed with his degree of functional decline and inability to transition from bed to chair, etc. over the past weeks, and called his physician, Dr. Beckman, who cares for him in [place], who recommended coming to the local emergency department to see if there were reversible/metabolic causes of his worsening encephalopathy/fall/weakness. They presented to the emergency department, work-up revealed normal BMP and CBC, normal urinalysis, negative coronavirus testing and negative CT scan of head for acute changes. He was admitted to observation for further diagnostic testing, therapy evaluation and placement evaluation. Hospital Course Hospital Course: Admitted.... workup as noted... no metabolic cause found for his dementia. Long discussion with family, they elected to pursue placement and PT recommended skilled care which was found at a facility in [facility], he will be transferred there today. Objective Vital signs: Temp Pulse Resp BP Pulse Ox 98.1 F 90 18 143/87 H 94 L 02/01/21 07:31 02/01/21 08:00 02/01/21 08:00 02/01/21 07:31 02/01/21 08:00 no acute distress - *Routine HEENT Exam Head: Present: normocephalic Eye: Present: EOMI, PERRL ENT: Present: mucous membranes moist - *Routine Neck Exam Present: supple - *Routine Respiratory Exam Present: CTA bilaterally - *Routine Cardiovascular Exam Present: RRR - *Routine Abdominal Exam Present: soft, normoactive bowel sounds. Absent: tenderness - *Routine Extremities Exam Absent: cyanosis, clubbing, edema - *Routine Skin Exam Present: warm. Absent: rash - *Routine Neurological Exam Present: alert Demented as previously noted. - Detailed Eye Exam Eyelids: Bilateral normal inspection DS: Diagnosis - Discharge Diagnosis (1) Frequent falls Status: Acute (2) Diabetes mellitus type 2, noninsulin dependent Status: Acute (3) Dementia Status: Acute (4) Impaired activities of daily living Status: Acute (5) Essential hypertension Status: Chronic (6) Prediabetes Status: Chronic Discharge Plan - Patient Discharge Instructions ACTIVITY: Continue current activity DIET: continue same diet Patient Instructions: Dementia, How to Prevent Falls, DI for Failure to Thrive - Follow up Plan Disposition: er [facility] Home Medications: Home Medications Medication Instructions Recorded Confirmed Type Aspirin 81 mg PO DAILY 01/26/21 01/26/21 History Cetirizine HCl [Zyrtec 10mg ODT*] 10 mg PO DAILY 01/26/21 01/26/21 History Donepezil HCl [Donepezil ODT 10mg] 10 mg PO DAILY 01/26/21 01/26/21 History Losartan Potassium [Cozaar 25mg 25 mg PO DAILY 01/26/21 01/26/21 History Tablets] Metformin HCl [Fortamet] 500 mg PO DAILY 01/26/21 01/27/21 History Tramadol HCl [Tramadol 50mg 50 mg PO DAILY 01/26/21 01/26/21 History Tab] Prescriptions/Medication Reconciliation: Continued Donepezil HCl [Donepezil ODT 10mg] 10 mg PO DAILY Aspirin 81 mg PO DAILY Losartan Potassium [Cozaar 25mg Tablets] 25 mg PO DAILY Cetirizine HCl [Zyrtec 10mg ODT*] 10 mg PO DAILY Tramadol HCl [Tramadol 50mg Tab] 50 mg PO DAILY Metformin HCl [Fortamet] 500 mg PO DAILY - Problem Reconciliation Problems Reviewed?: Yes
[2021-02-01 13:05] LABS: Rhinovirus/Enterovirus Detected (NotDetected)
== END 2021-02-01 14:30 ==
LOC: ER 19:37 → 2ND 20:06
PROVIDERS: Internal Medicine Adolescent Medicine; Admitting Provider Internal Medicine Adolescent Medicine; Emergency Provider Emergency Medicine; Visit Provider Internal Medicine Adolescent Medicine
DX: F03.90 Unspecified dementia, unspecified severity, without behavioral disturbance, psychotic disturbance, mood disturbance, and anxiety (principal); R29.6 Repeated falls; E11.9 Type 2 diabetes mellitus without complications; Z79.84 Long term (current) use of oral hypoglycemic drugs; I10 Essential (primary) hypertension; Z79.899 Other long term (current) drug therapy; Z74.2 Need for assistance at home and no other household member able to render care
CPT/HCPCS: 36415; 70450; 71045; 80048; 81001; 82607; 82803; 83036; 83735; 84443; 85025; 87581; 87633; 87798; 93005; 97110; 97161; 97165; 97530; 97535; 99284; G0378